=== PATIENT | female | born 1995 | race American Indian/Alaskan Native ===

== ENCOUNTER 2017-03-23 20:58 | Emergency (ER) | payer SELFPAY ==
[2017-03-24] MEDS ORDERED: XYLOCAINE 2% INFILTRATI ONE ×2 (02:46)
--- NOTE | 2017-03-24 03:57 | Emergency Department Report ---
- General Chief complaint: Wound/Laceration Stated complaint: MY THUMB IS INFECTED Time Seen by Provider: 03/24/17 03:52 Source: patient Mode of arrival: Ambulatory Limitations: No Limitations - History of Present Illness Initial comments: 21 YO FEMALE WITH 3 DAY H/ RIGHT THUMB SWELLING AND PAIN, N FEVER AND CHILLS. MD complaint: abscess/boil (RIGHT THUMB) -: days(s) (3) Tetanus Up to Date: yes (JULY 01/2017) Location: R hand (1ST DIGIT) Severity scale (0 -10): 7 Quality: aching, other (THROBBING) Improves with: none Worsens with: movement Associated symptoms: denies other symptoms Treatments Prior to Arrival: none - Related Data Previous Rx's Medication Instructions Recorded Last Taken Type oxyCODONE /ACETAMINOPHEN [Percocet 2 tab PO Q6HR PRN #30 tablet 03/24/17 Unknown Rx 5/325] Allergies Allergy/AdvReac Type Severity Reaction Status Date / Time No Known Allergies Allergy Unverified 03/23/17 21:29 Abscess Boil HPI - HPI Chief Complaint: Wound/Laceration Stated Complaint: MY THUMB IS INFECTED Time Seen by Provider: 03/24/17 03:52 Home Medications: Previous Rx's Medication Instructions Recorded Last Taken Type oxyCODONE /ACETAMINOPHEN [Percocet 2 tab PO Q6HR PRN #30 tablet 03/24/17 Unknown Rx 5/325] Allergies/Adverse Reactions: Allergies Allergy/AdvReac Type Severity Reaction Status Date / Time No Known Allergies Allergy Unverified 03/23/17 21:29 ED Review of Systems ROS: Stated complaint: MY THUMB IS INFECTED Other details as noted in HPI Constitutional: denies: chills, fever Eyes: denies: eye pain, eye discharge, vision change ENT: denies: ear pain, throat pain Respiratory: denies: cough, shortness of breath, wheezing Cardiovascular: denies: chest pain, palpitations Endocrine: no symptoms reported Gastrointestinal: denies: abdominal pain, nausea, diarrhea Genitourinary: denies: urgency, dysuria, discharge Musculoskeletal: other (RIGHT THUMB ABSCESS, SWELLING,PAIN). denies: back pain , joint swelling, arthralgia Skin: denies: rash, lesions (RIGHT HAND 1ST DIGIT ERYTHEMA,SWELLING) Neurological: denies: headache, weakness, paresthesias Psychiatric: denies: anxiety, depression Hematological/Lymphatic: denies: easy bleeding, easy bruising ED Past Medical Hx - Past Medical History Previous Medical History?: No - Surgical History Past Surgical History?: Yes Additional Surgical History: 07/01/16 - Social History Smoking Status: Current Some Day Smoker Substance Use Type: Alcohol - Medications Home Medications: Home Medications Medication Instructions Recorded Confirmed Last Taken Type oxyCODONE /ACETAMINOPHEN [Percocet 2 tab PO Q6HR PRN #30 tablet 03/24/17 Unknown Rx 5/325] ED Physical Exam - General Limitations: No Limitations General appearance: alert, in no apparent distress - Head Head exam: Present: atraumatic, normocephalic - Eye Eye exam: Present: normal appearance, EOMI - ENT ENT exam: Present: mucous membranes moist - Neck Neck exam: Present: normal inspection, full ROM - Respiratory Respiratory exam: Present: normal lung sounds bilaterally. Absent: respiratory distress, chest wall tenderness, decreased breath sounds - Cardiovascular Cardiovascular Exam: Present: regular rate, normal rhythm. Absent: systolic murmur, diastolic murmur, rubs, gallop - GI/Abdominal GI/Abdominal exam: Present: soft, normal bowel sounds - Rectal Rectal exam: Present: deferred - Extremities Exam Extremities exam: Present: normal inspection, tenderness (RIGHT THUMB LARGE PARONYCHIA , SWELLING IS MODERATE AND ON ALMOST THE ENTIRE THUMB) - Back Exam Back exam: Present: normal inspection, full ROM - Neurological Exam Neurological exam: Present: alert, oriented X3, CN II-XII intact - Psychiatric Psychiatric exam: Present: normal affect, normal mood - Skin Skin exam: Present: warm, dry, intact, normal color. Absent: rash ED Course Vital Signs 03/23/17 03/24/17 21:30 01:19 Temperature 98.1 F 98.6 F Pulse Rate 62 60 Respiratory 18 18 Rate Blood Pressure 153/89 157/99 O2 Sat by Pulse 100 100 Oximetry - I & D Right Finger Type of Procedure: Complex (RIGHT THUMB PARONYCHIA, 3CC OF PURULENT DISCHARGE WAS RELEASED, WASHED OUT, PACKED WITH IODOFORM GAUZE) Blade Size: 11 I & D Procedure: betadine prep, gauze wick placed (IODOFORM GAUZE) - Nerve Block Consent Obtained: verbal consent Time Out Performed: Yes Local Anesthetic Used: Lidocaine 2% Side: left, right Nerve Blocks: digital Procedure Successful: Yes Complications: none Patient Tolerated Procedure: well Critical care attestation.: If time is entered above; I have spent that time in minutes in the direct care of this critically ill patient, excluding procedure time. ED Disposition Clinical Impression: Paronychia of finger of right hand, Hand pain, right Disposition: - TO HOME OR SELFCARE Is pt being admited?: No Does the pt Need Aspirin: No Condition: Stable Instructions: Paronychia (ED), Abscess Incision and Drainage (ED) Additional Instructions: RETURN IN 2 DAYS OR GO TO YOUR DOCTOR TO HAVE A WOUND CHECK. IT THE FINGER GETS WORSE COME IN IMMEDIATELY ANYTIME. RETURN FOR ANY REASON. Prescriptions: oxyCODONE /ACETAMINOPHEN [Percocet 5/325] 2 tab PO Q6HR PRN #30 tablet PRN Reason: Pain Referrals: PRIMARY CARE,MD [Primary Care Provider] - 3-5 Days Forms: Work/School Release Form(ED) Time of Disposition: 04:03
[2017-03-24 05:46] VITALS: BP 155/88
== END 2017-03-24 04:25 | disposition home or self-care (01) ==
LOC: ED 20:58
DX: L03.011 Cellulitis of right finger (principal); F17.200 Nicotine dependence, unspecified, uncomplicated